=== PATIENT | male | born 1955 | race Hispanic/Latino ===

== ENCOUNTER 2021-07-08 13:14 | Outpatient (CLI) | payer MEDICARE | END 2021-07-08 13:15 | disposition home or self-care (01) | LOC: BICULT 13:14 | PROVIDERS: ATTEND Family Medicine | DX: R22.2 Localized swelling, mass and lump, trunk (principal) | CPT/HCPCS: 76999 ==

== ENCOUNTER 2021-07-15 07:24 | Outpatient (CLI) | payer MEDICARE ==
[2021-07-15] MEDS ORDERED: Iopamidol 370 76% 100 ML VIAL ONE (09:07)
== END 2021-07-15 07:25 | disposition home or self-care (01) ==
LOC: CT 07:24
PROVIDERS: ATTEND Family Medicine
DX: R22.2 Localized swelling, mass and lump, trunk (principal); E04.1 Nontoxic single thyroid nodule; R59.0 Localized enlarged lymph nodes
CPT/HCPCS: 70491; 82565; Q9967